=== PATIENT | female | born 1970 | race Caucasian/White ===

== ENCOUNTER 2017-07-31 05:24 | Day surgery (SDC) | payer OTHER ==
[~2017-07-31] VITALS: Ht 154.9 cm; Wt 64.0 kg
--- NOTE | ~2017-07-31 | O ---
[address] [address] OPERATIVE REPORT Name: MARIA T FERREIRA Room #: 150-1 [facility]..#: [id number] Admission: 07/31/17 Attend Phys: Lul Crandall MD Discharge: Date of : 72 Report #: [id number] THIS REPORT FOR: //name// CC: FAM unknown Lul Crandall DATE OF SERVICE: 07/31/2017 SERVICE: Orthopedics. FACILITY: [facility]. SURGEON: Lul Crandall MD TAFFY CANDY MAKER: None. PREOPERATIVE DIAGNOSES: 1. Right knee pain. 2. Traumatic right knee injury. 3. Chondromalacia, right knee. POSTOPERATIVE DIAGNOSES: 1. Right knee pain. 2. Traumatic right knee injury. 3. Chondromalacia, right knee. 4. Synovitis, right knee. 5. Right knee medial plica syndrome. PROCEDURE: 1. Right knee diagnostic arthroscopy with partial synovectomy and chondroplasty. 2. Right knee medial plica resection. ANESTHESIA: General. COMPLICATIONS: None. DRAINS: None. SPECIMENS: None. FINDINGS: 1. No loose body that was present. The abnormality on the sagittal MRI sequence that was believed to be either synovial fold or a loose body was confirmed arthroscopically to be a thickened synovial fold, which was resected with the shaver. [address] [address] OPERATIVE REPORT Name: MARIA T FERREIRA Room #: 150-1 [facility].#: [id number] Admission: 07/31/17 Attend Phys: Lul Crandall MD Discharge: Date of : 72 Report #: [id number] 2. Small medial synovial fold medially consistent with a plica was resected as well. 3. 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 4. A small stellate chondromalacia pattern on the lateral femoral condyle, medial and lateral compartments were otherwise intact. HISTORY AND INDICATIONS: The patient is a 46-year-old female who works for the [employer] who sustained an acute injury when a large mail carrying cart collided into her many months ago. She was treated conservatively through the worker's compensation process for an extended period of time and then presented after she felt like she had exhausted all conservative measures. There was an MRI, which was suggestive of a loose body, in particular on the sagittal films, but this was felt to potentially be a synovial fold as well and the patient was having pain in this region as well as some reported subjective mechanical symptoms. She had known chondromalacia of the patella and after multiple long discussions regarding treatment options and reasonable expectations she elected to proceed with surgery. These discussions covered the risks, benefits, alternatives and indications for surgical and nonsurgical treatment and the risk for surgical treatment include but are not limited to pain, bleeding, infection, injury to nerves or blood vessels, persistent pain despite surgical intervention, progression of any preexisting chondral injury, stiffness, need for further surgery, normal findings within the knee as well as complications related to anesthesia such as stroke, heart attack, pulmonary complications, thromboembolic disease and . Despite these risks, she wished to proceed. We had a abigail discussion about the appearance of the MRI and that a diagnostic arthroscopy would be the only definitive way to know if she in fact had a loose body. We made plans for chondroplasty of the patellofemoral pathology and assessment of the menisci as well. DESCRIPTION OF PROCEDURE: After the right leg was correctly identified as the operative extremity, the patient was taken to the operating room where general anesthesia was induced without complication. A tourniquet was applied to the right thigh. Prophylactic antibiotics were administered. The patient was padded appropriately. Right leg was prepped and draped in standard sterile fashion. A time-out procedure was performed. An Esmarch was utilized and the tourniquet was inflated to 250 mmHg. Standard anterolateral viewing portal was established followed by anterior medial working portal. Diagnostic arthroscopy revealed synovitis throughout the knee that was [id number] in severity. There was a central area of patellar chondromalacia towards the proximal half of the patella that was grade 3 and this was treated with chondroplasty with the shaver. The remaining patellar cartilage was normal as was the trochlear cartilage. The medial compartment was normal. The ACL and PCL were normal. The lateral compartment [address] [address] OPERATIVE REPORT Name: MARIA T FERREIRA Room #: 150-1 [facility] M.R.#: [id number] Admission: 07/31/17 Attend Phys: Lul Crandall MD Discharge: Date of : 72 Report #: [id number] revealed normal tibial plateau cartilage as well as lateral meniscus and the lateral femoral condyle cartilage was normal with the exception of a small stellate pattern chondromalacia graded grade 2 and grade 3 that had still stable parameters. It was approximately 50-75% in thickness. Limited chondroplasty was required here and this measured approximately 6 x 6 mm in size. At this point, the scope was placed in the suprapatellar pouch again to evaluate this region and specific assessment of the superolateral synovium as this was felt to be the source of the apparent loose body on the MRI. There was a thickened band of the synovium in this location and this was tethered running from the femur anterior to the anterior aspect of the suprapatellar pouch. This was resected with a shaver after a proximal lateral parapatellar portal was made in a percutaneous fashion. Then, to ensure complete diagnostic arthroscopy is completed, the scope was placed into the proximal superior lateral portal and the scope was then used to look back down the patellofemoral joint to confirm that adequate chondroplasty has been performed and then there was noted to be a thin band of tissue running from the medial retinaculum and synovium across the medial femoral condyle in the pattern that is typical of a symptomatic plica until a shaver was used to resect this plica. Arthroscopic effusion was drained. The portal sites were closed with Monocryl. A total of 20 mL of local anesthetic was injected into the soft tissues around the knee. Sterile dressing was applied followed by compression stocking. The patient was awakened from anesthesia and taken to recovery room in stable condition. There were no complications and all counts were correct. <ELECTRONICALLY SIGNED> By: Lul Crandall MD 07/31/17 [id number] Lul Crandall MD /nt
[~2017-07-31 05:24] MED LIST: IBUPROFEN 800800 M1 PO; TRAMADOL 50 MG50 MG PO; VITAMIN C500 M1 PO; VITAMIN E400 UNIT PO
[2017-07-31 12:00] VITALS: BP 130/91
[2017-07-31 13:59] VITALS: BP 130/91
== END 2017-07-31 15:20 | disposition home or self-care (01) ==
LOC: OR 05:24 → TBA 05:24 → OR 07:03
DX: M22.41 Chondromalacia patellae, right knee (principal); S83.91XD Sprain of unspecified site of right knee, subsequent encounter; X58.XXXD Exposure to other specified factors, subsequent encounter
CPT/HCPCS: 50010; 50101; 50405; 51038; 54170; 56527; 62110; 62900; 64037; 70005